=== PATIENT | male | born 1965 | race Caucasian/White ===

== ENCOUNTER 2017-08-21 08:12 | Outpatient (CLI) | payer BC ==
--- NOTE | 2017-08-21 09:00 | RAD ---
TWO VIEWS RIGHT HIP: DATE: 08/21/17. COMPARISON: None. HISTORY: Pain. FINDINGS: There is mild acetabular osteophyte formation seen laterally. There is mild subchondral cystic walters e involving the lateral aspect of the acetabulum as well. There is no displaced fracture or evidence of dislocation seen. Mild degenerative changes at the pubic symphysis noted. IMPRESSION: Degenerative change with no acute osseous abnormality seen. POS: [facility]
== END 2017-08-21 08:13 | disposition home or self-care (01) ==
LOC: RAD-FRANK 08:12
PROVIDERS: ATTEND Nurse Practitioner Family
DX: M25.551 Pain in right hip (principal); M16.11 Unilateral primary osteoarthritis, right hip

== ENCOUNTER 2018-04-02 05:40 | Inpatient (IN) | payer BC ==
[2018-04-02] MEDS ORDERED: Heparin 25,000 units/D5W 500 ML ONE (05:49)
[2018-04-02] MEDS ORDERED: diphenhydrAMINE 50 MG/ML VIAL ONE (06:05)
[2018-04-02] MEDS ORDERED: methylPREDNISolone Sod Succ/PF 125 MG/2 ML VIAL ONE (06:05)
[2018-04-02 06:14] LABS: #Basophils 0.1 thou/uL (0.0-0.2); #Eosinphils 0.2 thou/uL (0.0-0.7); #Monocytes 0.9 thou/uL (0.11-0.59); %Basophils 0.5 % (0.0-1.0); %Eosinophils 1.8 % (0.0-10.0); %Lymphocytes 16.3 % (21.0-51.0); %Monocytes 7.3 % (0.0-10.0); Hemoglobin 14.6 g/dL (14.0-18.0); Mean Corpuscular HGB CONC 31.6 g/dL (32.0-36.0); Mean Corpuscular Hemoglobin 28.2 pg (27.0-31.0); Mean Corpuscular Volume 89.2 fL (78.0-98.0); Mean Platelet Volume 8.9 fL (7.4-10.4); Platelet Count 185 thou/uL (130-400); RBC Distribution Width 12.3 % (11.5-14.5); Red Blood Cell (RBC) Count 5.18 mill/uL (4.70-6.10); White Blood Cell (WBC) Count 12.1 thou/uL (4.8-10.8)
[2018-04-02 06:15] LABS: INR-International Normal Ratio 1.1; PTT 60.3 SEC (22.9-36.1); Prothrombin Time 14.1 SEC (12.0-14.7)
--- NOTE | 2018-04-02 06:34 | RAD ---
TWO FRONTAL VIEWS OF THE CHEST: INDICATION: [facility] [place] alert with chest pain. COMPARISON: None. FINDINGS: There are frontal pacer pads overlying the right upper and left lower chest mireles. Visualized lungs are clear. Heart size is accentuated by the exam technique. There are mild vascular calcifications involving the aortic arch. No pleural effusion or pneumothorax is evident. No acute osseous abnorma lity is evident. IMPRESSION: No acute cardiopulmonary abnormality. POS: [facility]
[2018-04-02 06:39] LABS: ALT (SGPT) 24 U/L (8-55); AST (SGOT) 22 U/L (5-34); Albumin 4.2 g/dL (3.5-5.0); Alkaline Phosphatase 60 U/L (40-150); Anion Gap 16 mmol/L (10-20); BUN (Urea Nitrogen) 18 mg/dL (8.4-25.7); Bilirubin, Total 0.4 mg/dL (0.2-1.2); Calc. Creatinine Clearance 0 mL/min (70-130); Calcium 9.4 mg/dL (7.8-10.44); Carbon Dioxide 21 mmol/L (22-29); Chloride 106 mmol/L (98-107); Estimated GFR-MDRD 76; Globulin 2.8 g/dL (2.4-3.5); Glucose 160 mg/dL (70-105); Potassium 4.2 mmol/L (3.5-5.1); Sodium 139 mmol/L (136-145)
[2018-04-02] MEDS ORDERED: Clopidogrel Bisulfate 300 MG TAB ONE (06:42)
--- NOTE | 2018-04-02 06:54 | HP ---
INDICATION FOR ADMISSION: 52-year-old gentleman with acute anterolateral myocardial infarction. HISTORY OF PRESENT ILLNESS: This very unfortunate 52-year-old gentleman was at work when he had sudden onset of sharp stabbing chest pain, apparently got up to go to the bathroom and then, according to his coworkers, he passed out for about 10 seconds, then came to and the pain has been waxing and waning. He did have EKG changes compatible with ischemia and possible acute IN. We have no laboratory data to be sure that he has had any enzyme changes, but he continued to have chest discomfort. He, en route, was given aspirin, fentanyl, Zofran, morphine, and 4000 units of heparin. Otherwise, he had no significant history of coronary artery disease. He does have a father who had myocardial infarction at age 54. PAST MEDICAL HISTORY: Significant for hypothyroidism, hypertension, and hernia repair. SOCIAL HISTORY: He is . He has 6 children. No heart disease. He has no alcohol or tobacco abuse. He works nights. ALLERGIES: HE IS ALLERGIC TO SHELLFISH. REVIEW OF SYSTEMS: 12-point review of systems is unremarkable except for what is noted in the history of present illness. PHYSICAL EXAMINATION: GENERAL: Reveals a well-developed, well-nourished, middle-aged gentleman, in some mild distress at this time. His chest pain continues to wax and wane. VITAL SIGNS: Blood pressure 126/81, heart rates in the 70s, shows sinus rhythm with ST-segment changes in the lateral leads. HEENT: Shows the head to be normocephalic and atraumatic. Carotid pulses are present. There are no bruits. CHEST: Clear to auscultation. CARDIOVASCULAR: Reveals a regular rate and rhythm. EXTREMITIES: Showed no clubbing, cyanosis, or edema. ABDOMEN: Unremarkable. MUSCULOSKELETAL: He did have some chest wall tenderness to palpation. Apparently, when he fell, he injured his chest a little bit. VASCULAR: Pulses are present. SKIN: Warm and dry. IMPRESSION: 1. Acute anterolateral myocardial infarction. 2. Hypothyroidism. He says he has hyperthyroidism, but he does not take medications apparently, but he was adamant that his thyroid level was elevated and not low, but we will determine this later. PLAN: The patient was advised to undergo an emergent cardiac catheterization. He will be taken emergently to the cardiac semiconductor lab technician. I did explain the procedure, the risks to him to include bleeding, infection, possibility of myocardial infarction, CVA, renal insufficiency, allergic contrast reaction, and even the possibility of . We will give him premedications with steroids and Benadryl since he does complain of allergy to shellfish. Job ID: [id number]
[2018-04-02 06:56] LABS: CKMB 3.6 ng/mL (0-6.6)
[2018-04-02] MEDS ORDERED: Morphine 2 MG/ML SYRINGE ONE ×2 (08:11→09:19)
[2018-04-02] MEDS ORDERED: Iopamidol 370 76% 100 ML VIAL ONE (09:06)
[2018-04-02] MEDS ORDERED: Iopamidol 370 76% 50 ML VIAL FS ONE (09:06)
[2018-04-02] MEDS ORDERED: Nitroglycerin 0.4 MG TAB (25 Tab Bottle) SL PRN (10:31)
[2018-04-02] MEDS ORDERED: Morphine 2 MG/ML SYRINGE SLOW IVP PRN (10:31)
[2018-04-02] MEDS ORDERED: Morphine 4 MG/ML VIAL SLOW IVP PRN (10:32)
[2018-04-02 10:58] VITALS: BMI 30.4
[2018-04-02] MEDS: Sodium Chloride 0.9% 1,000 ML IV SCH (16:16)
[2018-04-02 16:34] LABS: CKMB 394.9 ng/mL (0-6.6)
[2018-04-02] MEDS ORDERED: Atorvastatin Calcium 40 MG TAB PO SCH (21:00)
[2018-04-02] MEDS: TICAGRELOR 90 MG TABLET PO SCH (21:01)
[2018-04-02] MEDS: Carvedilol 3.125 MG TAB PO SCH (21:01)
[2018-04-02 21:59] LABS: CKMB 399.1 ng/mL (0-6.6)
[2018-04-03] MEDS: Sodium Chloride 0.9% 1,000 ML IV SCH (02:54)
[2018-04-03 05:02] LABS: #Lymphocytes 1.8 thou/uL (1.20-3.40); #Monocytes 1.1 thou/uL (0.11-0.59); #Neutrophils 9.6 thou/uL (1.40-6.50); %Basophils 0.1 % (0.0-1.0); %Eosinophils 0.3 % (0.0-10.0); %Lymphocytes 14.4 % (21.0-51.0); %Monocytes 8.5 % (0.0-10.0); %Neutrophils 76.7 % (42.0-75.0); Hemoglobin 13.3 g/dL (14.0-18.0); Mean Corpuscular HGB CONC 32.7 g/dL (32.0-36.0); Mean Corpuscular Hemoglobin 29.5 pg (27.0-31.0); Mean Corpuscular Volume 90.4 fL (78.0-98.0); Mean Platelet Volume 8.7 fL (7.4-10.4); Platelet Count 178 thou/uL (130-400); RBC Distribution Width 12.4 % (11.5-14.5); Red Blood Cell (RBC) Count 4.51 mill/uL (4.70-6.10); White Blood Cell (WBC) Count 12.6 thou/uL (4.8-10.8)
[2018-04-03 05:30] LABS: ALT (SGPT) 53 U/L (8-55); AST (SGOT) 239 U/L (5-34); Albumin 3.9 g/dL (3.5-5.0); Alkaline Phosphatase 54 U/L (40-150); Anion Gap 12 mmol/L (10-20); BUN (Urea Nitrogen) 15 mg/dL (8.4-25.7); Bilirubin, Total 0.8 mg/dL (0.2-1.2); Calc. Creatinine Clearance 111 mL/min (70-130); Carbon Dioxide 21 mmol/L (22-29); Chloride 107 mmol/L (98-107); Cholesterol 198 mg/dl (< 200 Desired); Estimated GFR-MDRD 77; Globulin 2.4 g/dL (2.4-3.5); Glucose 110 mg/dL (70-105); HDL Cholesterol 40 mg/dL (>60 Neg Risk); LDL Cholesterol, Calculated 137 mg/dL; Potassium 4.1 mmol/L (3.5-5.1); Protein, Total 6.3 g/dL (6.0-8.3); Sodium 136 mmol/L (136-145); Triglycerides 106 mg/dL (Less than 150)
[2018-04-03] MEDS ORDERED: Levothyroxine Sodium 50 MCG TAB PO SCH (06:00)
[2018-04-03 08:44] VITALS: TEMP 98
[2018-04-03] MEDS ORDERED: Lisinopril 2.5 MG TAB PO SCH (09:00)
[2018-04-03] MEDS ORDERED: Aspirin Chewable 81 MG TAB PO SCH (09:00)
[2018-04-03] MEDS: Carvedilol 3.125 MG TAB PO SCH (09:12)
[2018-04-03] MEDS: TICAGRELOR 90 MG TABLET PO SCH (09:15)
[2018-04-03 09:24] LABS: Critical Call Chem Troponin I RESULT DECREASING; Troponin I 76.956 ng/mL (< 0.028)
--- NOTE | 2018-04-03 11:12 | PDOC.CTH ---
Cardiology Progress Note - Subjective The pt seen and examined. No overnight events. No cardiac complaints. He used to sniff, but willing to quit. - Objective Vital Signs Temp Pulse BP 04/03/18 09:12 90 120/75 04/03/18 08:00 98.0 F 04/03/18 04:00 98.2 F 04/03/18 00:00 98.7 F Weight 214 lb 04/02/18 04/03/18 04/04/18 06:59 06:59 06:59 Intake Total 3462 240 Output Total 1480 300 Balance 1981 - - Physical Examination General/Neuro: alert & oriented x3 Neck: no JVD present Lungs: CTA Heart: RRR Abdomen: soft Extremities: other: (No edema) - Telemetry Telemetry Rhythm: SR 80 - Labs Result Diagrams: 04/03/18 04:36 04/03/18 04:36 Troponin/CKMB CK-MB (CK-2) 399.1 ng/mL (0-6.6) H* 04/02/18 20:19 Troponin I 76.956 ng/mL (< 0.028) H* 04/03/18 08:38 - Assessment/Plan 1. Acute anterolateral TX with s/p REYNALDO x1 to prox LAD on 04/02/2018 - stable; on Coreg 3.125mg BID, Lisinopril 2.5mg qd, Brilinta BID, and ASA 81mg qd; Pravachol was stopped and changed to Lipitor 80mg qd; Brilinta coupon given to the pt. 2. HTN - stable with current med 3. Hypothyroidism - managed by his PCP MAR reviewed * The pt is stable to d/c home today. The pt will be off work for 1 wk. The pt will f/u with Dr Loza' office within 1wk. Review of Systems - Review of Systems Constitutional: reports: no symptoms reported EENTM: reports: no symptoms reported Respiratory: reports: no symptoms reported Cardiac (ROS): reports: no symptoms reported ABD/GI: reports: no symptoms reported : reports: no symptoms reported Musculoskeletal: reports: no symptoms reported Skin: reports: no symptoms reported
[2018-04-03 11:58] VITALS: BP 115/75
--- NOTE | 2018-04-04 23:46 | EKG ---
Test Reason : Blood Pressure : / mmHG Vent. Rate : 071 BPM Atrial Rate : 071 BPM P-R Int : 174 ms QRS Dur : 078 ms QT Int : 392 ms P-R-T Axes : 031 057 -07 degrees QTc Int : 425 ms Normal sinus rhythm Possible Inferior infarct , age undetermined Cannot rule out Anterior infarct , age undetermined Lateral injury pattern * ACUTE RI * Abnormal ECG Confirmed by ROMARIO LOPEZ DO ([id number]), city editor BIENVENIDO LLANOS ([id number]) on 04/04/2018 11:45:49 PM Referred By: Confirmed By:ROMARIO LOPEZ DO
--- NOTE | 2018-04-08 05:39 | DIS ---
DATE OF ADMISSION: 04/02/2018 DATE OF DISCHARGE: 04/03/2018 PRIMARY GRAVEL MACHINE OPERATOR: More Loza MD. DISCHARGE DISPOSITION: Home. PRIMARY DISCHARGE DIAGNOSIS: Acute anterolateral myocardial infarction. SECONDARY DISCHARGE DIAGNOSES: 1. Hypertension. 2. Hypothyroidism. INTERVENTION: Status post drug elute stent placement x1 to proximal LAD on April 02, 2018. DISCHARGE MEDICATIONS: 1. Aspirin 81 mg once a day. 2. Atorvastatin 80 mg once a day. 3. Carvedilol 3.125 mg twice a day. 4. Levothyroxine 50 mcg once a day. 5. Lisinopril 2.5 mg once a day. 6. Nitroglycerin 0.4 mg sublingual p.r.n. 7. Testosterone 100 mg once a day. 8. Brilinta 90 mg twice a day. 9. Omeprazole 1 tablet once a day. Contraindication of medication, none. CODE STATUS: Full code. DISCHARGE PLAN: The patient will follow up with Dr. Loza' office within 1 week and the patient is going to follow up with his primary care doctor within 2 to 4 weeks. HOSPITAL COURSE: Mr. Fields presents to emergency department for a new onset of sharp and stabbing like chest pain at work and also passing out for about 10 seconds in front of the co-workers. The patient's EKG shows ischemia with possible acute anterolateral myocardial infarction. The patient underwent emergent cardiac catheterization with PTCA and drug eluted stent placement into the LAD. The patient stayed in the hospital overnight, however, the patient's condition is stable at this moment. The patient's vital signs are stable with beta-amy, reasonable breathing the patient will be off the work for 1 week. Letter the workplace was given to the patient at the discharge. The patient will follow up with Dr. Loza' office within 1 week. Any questions are answered at the bedside prior to the discharge with the patient and family voiced understand at this moment. No questions or concerns at this moment. The patient and patient's family member were instructed to notify to Dr. Loza' office for any further question or concern about cardiac compliant. The patient was seen and examined at the bedside today. Job ID: [id number]
== END 2018-04-03 11:45 | disposition home or self-care (01) | DRG 247 ==
LOC: ERS 05:40 → SDC 06:10 → CCU 10:05
PROVIDERS: ADMIT Internal Medicine Cardiovascular Disease; ATTEND Internal Medicine Cardiovascular Disease
PROC: 027035Z Dilation of Coronary Artery, One Artery with Two Drug-eluting Intraluminal Devices, Percutaneous Approach (ICD-10-PCS; principal; 2018-04-02)
PROC: 4A023N7 Measurement of Cardiac Sampling and Pressure, Left Heart, Percutaneous Approach (ICD-10-PCS; 2018-04-02)
PROC: B2111ZZ Fluoroscopy of Multiple Coronary Arteries using Low Osmolar Contrast (ICD-10-PCS; 2018-04-02)
DX: I21.09 ST elevation (STEMI) myocardial infarction involving other coronary artery of anterior wall (principal); I10 Essential (primary) hypertension; E03.9 Hypothyroidism, unspecified; Z98.890 Other specified postprocedural states; Z82.49 Family history of ischemic heart disease and other diseases of the circulatory system; Z91.013 Allergy to seafood; Z88.0 Allergy status to penicillin
CPT/HCPCS: 36415; 71045; 80053; 80061; 82553; 84484; 85025; 85347; 85610; 85730; 92928; 93005; 93458; 93798; C1725; C1769; C1874; C1887; C9600; J1200; J1644; J2270; J2930; Q9967

== ENCOUNTER 2018-04-23 03:17 | Observation (INO) | payer BC ==
[2018-04-23] MEDS ORDERED: Ketorolac Tromethamine 30 MG/ML VIAL ONE (03:57)
[2018-04-23 04:03] LABS: #Eosinphils 0.2 thou/uL (0.0-0.7); #Lymphocytes 1.5 thou/uL (1.20-3.40); #Neutrophils 7.9 thou/uL (1.40-6.50); %Basophils 0.4 % (0.0-1.0); %Eosinophils 2.2 % (0.0-10.0); %Lymphocytes 13.9 % (21.0-51.0); %Monocytes 9.1 % (0.0-10.0); %Neutrophils 74.4 % (42.0-75.0); Hemoglobin 13.6 g/dL (14.0-18.0); Mean Corpuscular HGB CONC 33.1 g/dL (32.0-36.0); Mean Corpuscular Hemoglobin 29.6 pg (27.0-31.0); Mean Corpuscular Volume 89.6 fL (78.0-98.0); Mean Platelet Volume 9.1 fL (7.4-10.4); Platelet Count 149 thou/uL (130-400); RBC Distribution Width 12.1 % (11.5-14.5); Red Blood Cell (RBC) Count 4.59 mill/uL (4.70-6.10); White Blood Cell (WBC) Count 10.7 thou/uL (4.8-10.8)
[2018-04-23 04:23] LABS: ALT (SGPT) 23 U/L (8-55); AST (SGOT) 18 U/L (5-34); Albumin 3.6 g/dL (3.5-5.0); Alkaline Phosphatase 69 U/L (40-150); Anion Gap 11 mmol/L (10-20); BUN (Urea Nitrogen) 17 mg/dL (8.4-25.7); CK (CPK) 175 U/L (30-200); Calc. Creatinine Clearance 0 mL/min (70-130); Calcium 8.3 mg/dL (7.8-10.44); Carbon Dioxide 19 mmol/L (22-29); Chloride 111 mmol/L (98-107); Estimated GFR-MDRD 77; Globulin 2.5 g/dL (2.4-3.5); Glucose 125 mg/dL (70-105); Potassium 4.1 mmol/L (3.5-5.1); Protein, Total 6.1 g/dL (6.0-8.3); Sodium 137 mmol/L (136-145)
[2018-04-23 06:52] LABS: Bilirubin Negative (Negative); Blood, Urine Negative (Negative); Clarity CLEAR (Clear); Glucose, Urine (Dipstick) Negative (Negative); Leukocyte Negative (Negative); Nitrite Negative (Negative); Protein, Urine (Dipstick) Negative (Neg-Trace); Specific Gravity, Urine 1.016 (1.002-1.036)
[2018-04-23 07:32] LABS: Troponin I 0.014 ng/mL (< 0.028)
--- NOTE | 2018-04-23 07:44 | RAD ---
SINGLE VIEW OF THE CHEST: Comparison: 04-02-18 History: Left sided rib pain, chest pain. FINDINGS: Single view of the chest shows a normal sized cardiomediastinal silhouette. There is no evidence of c onsolidation, mass, or pleural effusion. Degenerative changes are seen in the spine. IMPRESSION: No evidence of acute cardiopulmonary disease. POS: [facility]
--- NOTE | 2018-04-23 09:51 | HP ---
REASON FOR ADMISSION: Chest pain rule out. HISTORY OF PRESENT ILLNESS: Mr. Fields is a 52-year-old man presenting with left lateral chest pain that woke him from his sleep at approximately 2:00 a.m. this morning, leading him to panic, as per the patient, and prompting him to take nitroglycerin. The patient states immediately after he began to feel lightheaded and had a brief syncopal episode lasting a few seconds. The patient states in retrospect, this syncopal episode was associated with hypotension as a result of the nitroglycerin. His blood pressure is normally 105 systolic since he has been on antihypertensives, therefore, he strongly believes this was not associated with his chest pain or any underlying heart problem. The patient is status post a STEMI in March 2018, at which time, he had a cath with two stents placed. The patient states the pain has continued and is only reproduced with movement at times, deep inspiration and palpation. The pain is in the left lateral chest and his left arm. He states he was extremely active yesterday with mowing the lawn and doing yard work including using machinery to do the yard work and he feels he may have pulled a muscle, which is causing the discomfort. The patient states the pain is not the same as the pain he experienced previously with the GA. He denies having any associated diaphoresis, nausea, or vomiting. He states he did not feel unwell until he took the nitroglycerin this morning. Since arriving to the ED, he has been back to baseline and without any lightheadedness or dizziness. He denies having any recent cough or hemoptysis. Has not had any palpitations. The patient at this time is refusing to be admitted or undergo any further investigations. He wishes to follow up as an outpatient and is due for a cardiology appointment in July 2018. LABORATORY DATA: Laboratory studies done in the ED showed a normal full blood count. Sodium was 137, potassium 4.1, BUN 17, creatinine 1.01. GFR 77. LFTs unremarkable. Troponin I was 0.015 initially and second troponin was 0.014. The patient is refusing to wait for third troponin. Chest x-ray was done showing no acute changes. ECG done in the ED showed normal sinus rhythm with inverted T-waves in anterior leads and evidence of anteroseptal infarct, age undetermined. PHYSICAL EXAMINATION: GENERAL: On examination, the patient appears to be in no acute distress. He does have significant tenderness with palpation to the lateral aspect of the left pectoralis muscle. Pain also elicited with movement of his left arm. Tenderness of the left shoulder. No swelling or bruising. The patient denies any trauma, but reports overuse of the left arm when doing yard work yesterday. No numbness or paresthesias. LUNGS: Clear bilaterally without wheezes, rales, or rhonchi. CARDIAC: Regular rate and rhythm without audible murmurs, rubs, or gallops. ABDOMEN: Soft, nontender, nondistended with bowel sounds present. EXTREMITIES: Without clubbing, cyanosis, or edema. No calf tenderness. NEUROLOGIC: Alert and oriented x3. SKIN: Without rash or jaundice. RECOMMENDATIONS: I have discussed with the patient recommendations to proceed with further investigations to ensure no other underlying conditions that may have contributed to his symptoms have been requested since reason for admission. However, the patient states he wishes to be discharged home and is agreeable to sign for discharge as AMA. Per the patient, he does plan to follow up with his primary care team and drill doctor . Job ID: [id number]
--- NOTE | 2018-05-14 13:59 | EKG ---
Test Reason : CP Blood Pressure : / mmHG Vent. Rate : 077 BPM Atrial Rate : 077 BPM P-R Int : 190 ms QRS Dur : 084 ms QT Int : 416 ms P-R-T Axes : 017 030 106 degrees QTc Int : 470 ms Normal sinus rhythm Anteroseptal infarct , age undetermined T wave abnormality, consider lateral ischemia Anterior lead T wave inversion Abnormal ECG Confirmed by EDY BYERS ([id number]), electronic news gathering editor BIENVENIDO LLANOS ([id number]) on 05/14/2018 1:59:20 PM Referred By: Confirmed By:EDY BYERS
== END 2018-04-23 20:00 | disposition home or self-care (01) ==
LOC: ERS 03:17 → ERHOLD 06:29
PROVIDERS: ADMIT Hospitalist; ATTEND Hospitalist
DX: R07.9 Chest pain, unspecified (principal); I25.2 Old myocardial infarction; I95.9 Hypotension, unspecified; Z53.21 Procedure and treatment not carried out due to patient leaving prior to being seen by health care provider; Z87.891 Personal history of nicotine dependence; Z79.02 Long term (current) use of antithrombotics/antiplatelets; Z79.82 Long term (current) use of aspirin; Z79.899 Other long term (current) drug therapy; Z88.0 Allergy status to penicillin; Z91.013 Allergy to seafood; Z95.5 Presence of coronary angioplasty implant and graft
CPT/HCPCS: 36415; 71045; 80053; 81003; 82550; 83605; 84484; 85025; 93005; 96361; 96374; G0378; J1885

== ENCOUNTER 2018-04-25 09:28 | Emergency (ER) | payer BC ==
[2018-04-25 10:24] LABS: #Eosinphils 0.2 thou/uL (0.0-0.7); #Lymphocytes 1.2 thou/uL (1.20-3.40); #Monocytes 0.6 thou/uL (0.11-0.59); #Neutrophils 4.8 thou/uL (1.40-6.50); %Basophils 0.5 % (0.0-1.0); %Eosinophils 3.1 % (0.0-10.0); %Monocytes 8.7 % (0.0-10.0); %Neutrophils 70.7 % (42.0-75.0); Mean Corpuscular HGB CONC 32.7 g/dL (32.0-36.0); Mean Corpuscular Hemoglobin 29.5 pg (27.0-31.0); Mean Corpuscular Volume 90.4 fL (78.0-98.0); Mean Platelet Volume 9.2 fL (7.4-10.4); Platelet Count 154 thou/uL (130-400); RBC Distribution Width 12.1 % (11.5-14.5); White Blood Cell (WBC) Count 6.8 thou/uL (4.8-10.8)
[2018-04-25 10:38] LABS: ALT (SGPT) 22 U/L (8-55); AST (SGOT) 19 U/L (5-34); Albumin 3.9 g/dL (3.5-5.0); Alkaline Phosphatase 72 U/L (40-150); Anion Gap 12 mmol/L (10-20); BUN (Urea Nitrogen) 12 mg/dL (8.4-25.7); Bilirubin, Total 0.7 mg/dL (0.2-1.2); Calc. Creatinine Clearance 0 mL/min (70-130); Calcium 9.2 mg/dL (7.8-10.44); Carbon Dioxide 24 mmol/L (22-29); Chloride 109 mmol/L (98-107); Estimated GFR-MDRD 74; Globulin 2.9 g/dL (2.4-3.5); Glucose 90 mg/dL (70-105); Potassium 4.5 mmol/L (3.5-5.1); Protein, Total 6.8 g/dL (6.0-8.3); Sodium 140 mmol/L (136-145)
== END 2018-04-25 11:35 | disposition home or self-care (01) ==
LOC: ERS 09:28
DX: I25.10 Atherosclerotic heart disease of native coronary artery without angina pectoris (principal); I10 Essential (primary) hypertension; F41.9 Anxiety disorder, unspecified; E05.90 Thyrotoxicosis, unspecified without thyrotoxic crisis or storm; I25.2 Old myocardial infarction; E78.00 Pure hypercholesterolemia, unspecified; Z79.899 Other long term (current) drug therapy; Z79.82 Long term (current) use of aspirin
CPT/HCPCS: 36415; 80053; 84484; 85025; 93005